=== PATIENT | female | born 1960 | race Caucasian/White ===

== ENCOUNTER → 2017-04-26 | Outpatient (CLI) | payer OTHER ==
--- NOTE | 2017-04-26 15:35 | US ---
EXAMINATION TYPE: US transvaginal DATE OF EXAM: 04/26/2017 COMPARISON: Pelvic ultrasound September 26, 2013 CLINICAL HISTORY: R10.2 Abdominal Pain R10 Female Pelvic Pain. Postmenopausal. Ablation x 2006. TECHNIQUE: Transvaginal (TV) Date of LMP: [employer], EXAM MEASUREMENTS: Uterus: 7.3 x5.1 x 4.6 cm Endometrial Stripe: not visualized 1. Uterus: Anteverted Heterogenous. Multiple fibroids seen throughout uterus. Largest fibroid ap pearing lesion seen in mid uterus = 3.9 x 3.0 x 2.8 cm. Left echogenic focus with shadowing - 1.1 cm 2. Endometrium: Not visualized, possibly due to ablation and fibroids 3. Right Ovary: Obscured by overlying bowel gas 4. Left Ovary: Obscured by overlying bowel gas 5. Bilateral Adnexa: wnl 6. Posterior cul-de-sac: no free fluid Visualized uterus is markedly heterogeneous and somewhat prominent in size for postmenopausal female. Vague hypoechoic areas are presumed to reflect fibroids measuring up to 3.9 cm in size. Endometrium is not well visualized. No free fluid is seen in pelvis. Neither ovary is seen. Suspicious adnexal masses are noted. IMPRESSION: Persistent vague heterogeneous prominent uterus felt to reflect underlying fibroid uterus though there is decrease in size of uterus and fibroids noted since the 2013 study.
--- NOTE | 2017-04-30 09:06 | MM ---
Reason for exam: screening (asymptomatic). Last mammogram was performed 3 years and 10 months ago. History: Benign right mammotome panel of the right breast, March 08, 2007. Benign right US cyst aspiration of the right breast, March 08, 2007. Reductions of both breasts, November 2005. Physical Findings: A clinical breast exam by your physician is recommended on an annual basis and results should be correlated with mammographic findings. MG 3D Screening Mammo W/Cad Bilateral CC and MLO view(s) were taken. Prior study comparison: June 23, 2013, bilateral digital screening mammo w/CAD. April 08, 2012, bilateral digital screening mammo w/CAD. The breast tissue is heterogeneously dense. This may lower the sensitivity of mammography. Finding: There are typically benign stable diffuse/scattered calcifications in both breasts. No suspicious abnormality. No significant changes in finding since June 23, 2013 and April 08, 2012. ASSESSMENT: Benign, BI-RAD 2 RECOMMENDATION: Routine screening mammogram of both breasts in 1 year.
== END | disposition home or self-care (01) ==
LOC: RADMAMWWP 14:30
PROVIDERS: ATTEND Family Medicine
DX: Z12.31 Encounter for screening mammogram for malignant neoplasm of breast (principal); D25.9 Leiomyoma of uterus, unspecified; R10.2 Pelvic and perineal pain; R10.32 Left lower quadrant pain
CPT/HCPCS: 77063; 76830; G0202

== ENCOUNTER → 2017-10-31 | Outpatient (CLI) | payer OTHER ==
--- NOTE | 2017-10-31 11:14 | US ---
EXAMINATION TYPE: US abdomen limited DATE OF EXAM: 10/31/2017 COMPARISON: None CLINICAL HISTORY: 57-year-old female R94.5 Abnormal results of liver function studies. Elevated LFT's , pt has no other complaints at this time TECHNIQUE: Multiple sonographic images of the right upper quadrant are obtained. FINDINGS: EXAM MEASUREMENTS: Liver Length: 17.9 cm CBD: 0.5 cm Right Kidney: 11.3 x 4.5 x 4.9 cm Pancreas: Obscured by bowel gas Liver: Upper limits of normal for size, otherwise with homogeneous echotexture and no focal lesion. Gallbladder: Surgically absent Evidence for sonographic Lamas's sign: No CBD: wnl Right Kidney: wnl IMPRESSION: Borderline hepatomegaly (17.9 cm). Suboptimal visualization of the pancreas. Status post cholecystect emily. No biliary ductal dilatation.
== END | disposition home or self-care (01) ==
LOC: RADUSWWP 10:05
PROVIDERS: ATTEND Obstetrics & Gynecology
DX: R16.0 Hepatomegaly, not elsewhere classified (principal); Z90.49 Acquired absence of other specified parts of digestive tract
CPT/HCPCS: 76705

== ENCOUNTER → 2018-08-28 | Outpatient (CLI) | payer MEDICARE ==
--- NOTE | 2018-08-29 06:32 | BD ---
EXAMINATION TYPE: Axial Bone Density DATE OF EXAM: 08/28/2018 COMPARISON: Prior DEXA bone scan report October 10, 2005. CLINICAL HISTORY: Postmenopausal female Height: 64 Weight: 175.5 FRAX RISK QUESTIONS: Alcohol (3 or more units per day): no Family History (Parent hip fracture): no Glucocorticoids (More than 3mos): no (Ex: prednisone, prednisolone, methylprednisolone, dexamethasone, and hydrocortisone). History of Fracture in Adulthood: yes Secondary Osteoporosis: 1. Type 1 Diabetes: no 2. Hyperthyroidism: no 3. Menopause before 45: no 4. Malnutrition: no 5. Chronic liver disease: no Rheumatoid Arthritis: yes Current Tobacco Use: no RISK FACTORS HISTORY OF: Spine Fracture: spine When: unsure when Surgery to Spine/Hip(right/left)/Wrist (right/left): lumbar surgery When: 2 years ago Family History of Osteoporosis: no Active: yes Diet low in dairy products/other sources of calcium: yes Postmenopausal woman: age 48 Take estrogen and/or progesterone medications: yes How lon months MEDICATIONS:lipitor, estrogen, progesterone , vitamins Thyroid Medications: synthroid How Lon years Additional History: EXAM MEASUREMENTS: Bone mineral densitometry was performed using the [employer]. Bone mineral density about the R hip (g/cm2): 1.039 Bone mineral density about the L hip (g/cm2): 1.088 T Score values are as follows: -----R Neck: 0.0 -----L Neck: 0.4 -----R Total: 0.6 -----L Total: 1.7 Bone mineral density has: decreased -3.4 % since study of: . Bone mineral density about the L Wrist (g/cm2): 0.448 T Score values are as follows: -----Dist. R+U: -0.3 -----Prox. R+U: 0.1 -----Radius total: -0.5 Bone mineral density : baseline IMPRESSION: Normal (Values between +1 and -1 indicate normal bone mass). Consider repeating this study in 5 year s or sooner if there is some new clinical indication. NOTE: T-SCORE=SD OF THE YOUNG ADULT MEAN.
--- NOTE | 2018-08-30 08:26 | MM ---
Reason for exam: screening (asymptomatic). Last mammogram was performed 1 year and 4 months ago. History: Patient is postmenopausal. Benign right mammotome panel of the right breast, March 08, 2007. Benign right US cyst aspiration of the right breast, March 08, 2007. Reductions of both breasts, November 2005. Taking estrogen for 9 months beginning at age 58. Taking progesterone for 9 months beginning at age 58. Physical Findings: A clinical breast exam by your physician is recommended on an annual basis and results should be correlated with mammographic findings. MG Screening Mammo w CAD Bilateral CC and MLO view(s) were taken. Prior study comparison: April 26, 2017, bilateral MG 3d screening mammo w/cad. The breast tissue is heterogeneously dense. This may lower the sensitivity of mammography. Previous mammotome biopsy in the right breast. Bilateral regional punctate calcifications are unchanged. No significant changes when compared with prior studies. ASSESSMENT: Benign, BI-RAD 2 RECOMMENDATION: Routine screening mammogram of both breasts in 1 year.
== END | disposition home or self-care (01) ==
LOC: RADMAMWWP 15:09
PROVIDERS: ATTEND Family Medicine
DX: Z12.31 Encounter for screening mammogram for malignant neoplasm of breast (principal); Z13.820 Encounter for screening for osteoporosis; N95.9 Unspecified menopausal and perimenopausal disorder
CPT/HCPCS: 77067; 77080

== ENCOUNTER 2018-10-11 10:47 | Day surgery (SDC) | payer MEDICARE, OTHER ==
[2018-10-07 12:10] VITALS: BMI 29.2
[~2018-10-11 10:47] MED LIST: LACTATED RINGERS 1,000 ML IV SCH
[2018-10-11 11:01] VITALS: TEMP 98
[2018-10-11] MEDS ORDERED: LIDOCAINE 1% 20 ML VIAL (10MG/ML) FOR IV START INTRADERMA ONE (11:04)
[2018-10-11] MEDS ORDERED: PROPOFOL 10 MG/ML 20 ML VIAL IV ONE (11:52)
[2018-10-11] MEDS ORDERED: LIDOCAINE 1% INJ 10MG/ML (20 ML MDV) ONE (11:52)
--- NOTE | 2018-10-11 11:57 | P.GSHP ---
History of Present Illness H&P Date: 10/11/18 Chief Complaint: Colon cancer screening Patient here today for elective colonoscopy. Patient's last colonoscopy approximately 10 years ago. Patient has a history of intermittent diarrhea and constipation. She also has complaints of hemorrhoidal irritation. Past Medical History Past Medical History: Fibromyalgia, GERD/Reflux, Hyperlipidemia, Osteoarthritis (OA), Thyroid Disorder Additional Past Medical History / Comment(s): SL Varicose veins, "low/normal heart rate", beck's. PROLAPSED MITRAL VALVE. OCC GERD. History of Any Multi-Drug Resistant Organisms: None Reported Past Surgical History: Back Surgery, Breast Surgery, Cholecystectomy, Joint Replacement, Orthopedic Surgery, Uterine Ablation Additional Past Surgical History / Comment(s): jovi breast reduction, rt knee- arthroscopy x 2, ACL x1, REMOVAL OF HARDWARE W/ TOTAL RIGHT KNEE. BACK X2. COLONOSCOPY. Past Anesthesia/Blood Transfusion Reactions: Motion Sickness Additional Past Anesthesia/Blood Transfusion Reaction / Comment(s): "AWAKENS A BIT SLOWLY," SL AWAKE FOR COLONOSCOPY. Smoking Status: Former smoker - Past Family History Father Family Medical History: Cancer Mother Family Medical History: Cancer Medications and Allergies Home Medications Medication Instructions Recorded Confirmed Type Atorvastatin [Lipitor] 40 mg PO DAILY@1200 12/11/14 10/11/18 History Levothyroxine Sodium [Synthroid] 100 mcg PO DAILY 12/11/14 10/11/18 History Aspirin [Adult Low Dose Aspirin EC] 81 mg PO DAILY 10/07/18 10/11/18 History Cholecalciferol [Vitamin D3] 5,000 unit PO DAILY 10/07/18 10/11/18 History Estradiol [Miriam 0.075 MG] 1 patch TRANSDERM Q84H 10/07/18 10/11/18 History Multivitamin with Iron 1 each PO DAILY 10/07/18 10/11/18 History [Multivitamins with Iron] Progesterone, Micronized 200 mg PO DAILY 10/07/18 10/11/18 History [Progesterone] Allergies Allergy/AdvReac Type Severity Reaction Status Date / Time codeine Allergy Itching Verified 10/07/18 11:48 Surgical - Exam Vital Signs Temp Pulse Resp BP Pulse Ox 98.0 F 71 16 131/68 96 10/11/18 10:58 10/11/18 10:58 10/11/18 10:58 10/11/18 10:58 10/11/18 10:58 Physical exam: General: Well-developed, well-nourished HEENT: Normocephalic, sclerae nonicteric Abdomen: Nontender, nondistended Extremities: No edema Neuro: Alert and oriented Assessment and Plan (1) Colon cancer screening Narrative/Plan: Will proceed with colonoscopy Current Visit: Yes Status: Acute Code(s): Z12.11 - ENCOUNTER FOR SCREENING FOR MALIGNANT NEOPLASM OF COLON SNOMED Code(s): 923087048
--- NOTE | 2018-10-11 12:05 | P.PCN ---
Date of Procedure: 10/11/18 Procedure(s) Performed: PREOPERATIVE DIAGNOSIS: Colon cancer screening POSTOPERATIVE DIAGNOSIS: Normal exam PROCEDURE: Colonoscopy ANESTHESIA: MAC SURGEON: Jordan Marks M.D. SPECIMENS: None ENDOSCOPIC PROCEDURE: The patient was placed on the endoscopy table in the left decubitus position. The Olympus colonoscope was inserted into the anus and passed under direct visualization to the base of the cecum. The appendiceal orifice was visualized. From that point the scope was slowly withdrawn inspecti ng all surfaces carefully. There were no neoplastic inflammatory or polypoid lesions throughout the cecum, ascending, transverse, descending, sigmoid and rectum. There was visible diverticulosis noted. Digital rectal examination was normal. The patient was taken to the recovery room in stable condition per anesthesia guidelines. RECOMMENDATIONS: Increase fiber. Follow-up colonoscopy in 10 years.
[2018-10-11 12:37] VITALS: RESP 18
[2018-10-11 12:39] VITALS: BP 104/62; PULSE 72
== END 2018-10-11 12:50 | disposition home or self-care (01) ==
LOC: ORWHC2ENDO 10:47
PROVIDERS: ATTEND Surgery
DX: Z12.11 Encounter for screening for malignant neoplasm of colon (principal); K57.30 Diverticulosis of large intestine without perforation or abscess without bleeding; M19.90 Unspecified osteoarthritis, unspecified site; M79.7 Fibromyalgia; K21.9 Gastro-esophageal reflux disease without esophagitis; E78.5 Hyperlipidemia, unspecified; E06.3 Autoimmune thyroiditis; Z79.82 Long term (current) use of aspirin; Z87.891 Personal history of nicotine dependence; Z79.890 Hormone replacement therapy; Z79.899 Other long term (current) drug therapy; Z88.5 Allergy status to narcotic agent
CPT/HCPCS: 45378

== ENCOUNTER → 2019-01-24 | Outpatient (CLI) | payer MEDICARE ==
[2019-01-24 13:18] LABS: Basophils % (A) 1 %; Eosinophils # (A) 0.1 k/uL (0-0.7); Eosinophils % (A) 2 %; HCT 40.2 % (34.0-46.0); HGB 13.4 gm/dL (11.4-16.0); Lymphocytes # (A) 2.1 k/uL (1.0-4.8); Lymphocytes % (A) 37 %; MCH 29.2 pg (25.0-35.0); MCHC 33.3 g/dL (31.0-37.0); MCV 87.9 fL (80.0-100.0); Monocytes # (A) 0.3 k/uL (0-1.0); Monocytes % (A) 5 %; Neutrophils % (A) 53 %; Platelet Count 258 k/uL (150-450); RBC 4.57 m/uL (3.80-5.40); RDW 13.1 % (11.5-15.5); WBC 5.7 k/uL (3.8-10.6)
[2019-01-24 13:42] LABS: Appearance,Urine Cloudy (Clear); Bacteria,Urine Rare /hpf; Bilirubin,Urine Negative (Negative); Blood,Urine Negative (Negative); Color,Urine Yellow; Glucose,Urine (UA) Negative (Negative); Ketones,Urine Negative (Negative); Leukocyte Esterase,Urine Negative (Negative); Mucus,Urine Moderate /hpf; Nitrite,Urine Negative (Negative); PH, Urine 5.5 (5.0-8.0); Protein,Urine Trace (Negative); Specific Gravity,Urine 1.027 (1.001-1.035); Squamous Epithelial Cell,Urine 14 /hpf (0-4); Urobilinogen,Urine <2.0 mg/dL (<2.0); WBC,Urine 1 /hpf (0-5)
== END | disposition home or self-care (01) ==
LOC: LABWHC1 12:19
PROVIDERS: ATTEND Obstetrics & Gynecology
DX: Z01.812 Encounter for preprocedural laboratory examination (principal)
CPT/HCPCS: 36415; 81001; 85025; 86850; 86900; 86901; 87086

== ENCOUNTER → 2019-01-29 | Outpatient (CLI) | payer MEDICARE ==
[2019-01-29 11:12] LABS: ALT 19 U/L (9-52); AST 25 U/L (14-36); Cholesterol 189 mg/dL (<200); HDL Cholesterol 46 mg/dL (40-60); LDL Cholesterol,Calculated 116 mg/dL (0-99); Triglycerides 134 mg/dL (<150)
== END | disposition home or self-care (01) ==
LOC: LAB 01-28 09:52
PROVIDERS: ATTEND Internal Medicine Cardiovascular Disease
DX: E78.2 Mixed hyperlipidemia (principal)
CPT/HCPCS: 80061; 84450; 84460

== ENCOUNTER → 2020-02-18 | Outpatient (CLI) | payer MEDICARE ==
--- NOTE | 2020-02-18 11:42 | US ---
EXAMINATION TYPE: US abdomen complete DATE OF EXAM: 02/18/2020 COMPARISON: US 10/31/2018 CLINICAL HISTORY: R10.13 epigastric pain; R10.11 RUQ abd pain. Difficult and limited exam due to pawan ent pain EXAM MEASUREMENTS: Liver Length: 13.4 cm Gallbladder Wall: Surgically absent CBD: 0.7 cm Spleen: 8.7 cm Right Kidney: 11.9 x 3.9 x 5.0 cm Left Kidney: 10.6 x 5.3 x 5.0 cm Pancreas: Obscured by bowel gas, visualized portions appear wnl Liver: wnl Gallbladder: Surgically absent Evidence for sonographic Lamas's sign: Yes CBD: wnl post cholecystectomy Spleen: wnl Right Kidney: No hydronephrosis or masses seen Left Kidney: No hydronephrosis or masses seen Upper IVC: wnl Abd Aorta: wnl as visualized The liver is homogenous. The intrahepatic portion of the IVC and proximal abdominal aorta are within normal limits. Common bile duct is unremarkable. The visualized portions of the pancreas are homo genous. The spleen is unremarkable. Kidneys are symmetric and free of hydronephrosis. No renal les ions are seen. IMPRESSION: No distinct abnormality is appreciated.
== END | disposition home or self-care (01) ==
LOC: RADUSWWP 10:58
PROVIDERS: ATTEND Family Medicine
DX: R10.13 Epigastric pain (principal); R10.11 Right upper quadrant pain
CPT/HCPCS: 76700

== ENCOUNTER → 2020-04-30 | Outpatient (CLI) | payer MEDICARE | END | disposition home or self-care (01) | LOC: LABWHC1 09:31 | PROVIDERS: ATTEND Nurse Practitioner Family | DX: Z20.828 Contact with and (suspected) exposure to other viral communicable diseases (principal) | CPT/HCPCS: U0003; C9803 ==

== ENCOUNTER 2020-07-04 13:25 | Emergency (ER) | payer MEDICARE ==
[2020-07-04 13:33] VITALS: TEMP 99
[2020-07-04] MEDS ORDERED: HYDROmorphone 1 MG/ML 1 ML SYRINGE IM STA (14:05)
--- NOTE | 2020-07-04 14:40 | ED ---
Back Pain HPI - General Source: patient, RN notes reviewed Limitations: no limitations <Osman Villagran - Last Filed: 07/04/20 15:41> <Patti Downs - Last Filed: 07/06/20 22:50> - General Chief Complaint: Back Pain/Injury Stated Complaint: back pain Time Seen by Provider: 07/04/20 13:39 - History of Present Illness Initial Comments: 60-year-old female presents emergency Department chief complaint low back pain. Patient states she has chronic low back issues states that she's had 2 laminectomies. Patient states that she was vacuuming a few days ago and states that she felt a pop in her back. She has pain and rates on her left leg to her knee on the frontal aspect of her legs she denies any lower shunted paresthesias or saddle anesthesias. Denies any bowel, bladder incontinence or retention. She has no cords abdominal pain no chest pain or shortness breath no associated weakness states his chest painful. Patient is ambulatory. (Osman Villagran) - Related Data Home Medications Medication Instructions Recorded Confirmed Atorvastatin [Lipitor] 40 mg PO DAILY 12/11/14 07/04/20 Levothyroxine Sodium [Synthroid] 100 mcg PO DAILY 12/11/14 07/04/20 Cholecalciferol [Vitamin D3] 2,000 unit PO DAILY 10/07/18 07/04/20 Ibuprofen [Motrin Ib] 800 mg PO TID PRN 07/04/20 07/04/20 Multivitamins, Thera [Multivitamin 1 tab PO DAILY 07/04/20 07/04/20 (formulary)] diazePAM [Valium] 5 mg PO DAILY PRN 07/04/20 07/04/20 Previous Rx's Medication Instructions Recorded HYDROcodone/APAP 7.5-325MG [Issue 1 tab PO Q6HR PRN 3 Days #12 tab 07/04/20 7.5-325] Ketorolac [Toradol] 10 mg PO Q8HR #15 tab 07/04/20 predniSONE 50 mg PO DAILY #5 tab 07/04/20 Allergies Allergy/AdvReac Type Severity Reaction Status Date / Time codeine Allergy Itching Verified 07/04/20 14:30 Review of Systems ROS Other: All systems not noted in ROS Statement are negative. <Osman Villagran - Last Filed: 07/04/20 15:41> ROS Other: All systems not noted in ROS Statement are negative. <Patti Downs - Last Filed: 07/06/20 22:50> ROS Statement: Those systems with pertinent positive or pertinent negative responses have been documented in the HPI. Past Medical History Past Medical History: Fibromyalgia, Hyperlipidemia, Osteoarthritis (OA), Thyroid Disorder Additional Past Medical History / Comment(s): varicose veins, "low heart rate", beck's History of Any Multi-Drug Resistant Organisms: None Reported Past Surgical History: Back Surgery, Breast Surgery, Cholecystectomy, Joint Replacement, Orthopedic Surgery, Uterine Ablation Additional Past Surgical History / Comment(s): jovi breast reduction, rt knee- arthroscopy x 2, ACL x1, REMOVAL OF HARDWARE WITH TOTAL RIGHT KNEE Past Anesthesia/Blood Transfusion Reactions: Motion Sickness Additional Past Anesthesia/Blood Transfusion Reaction / Comment(s): "AWAKENS A BIT SLOWLY," SL AWAKE FOR COLONOSCOPY. Past Psychological History: Depression Smoking Status: Never smoker Past Alcohol Use History: Occasional Past Drug Use History: None Reported - Past Family History Father Family Medical History: Cancer Mother Family Medical History: Cancer <SamiacaylaOsman Liban - Last Filed: 07/04/20 15:41> General Exam Limitations: no limitations General appearance: alert, in no apparent distress Head exam: Present: atraumatic, normocephalic, normal inspection Eye exam: Present: normal appearance, PERRL, EOMI. Absent: scleral icterus, conjunctival injection, periorbital swelling Respiratory exam: Present: normal lung sounds bilaterally. Absent: respiratory distress, wheezes, rales, rhonchi, stridor Cardiovascular Exam: Present: regular rate, normal rhythm, normal heart sounds. Absent: systolic murmur, diastolic murmur, rubs, gallop, clicks GI/Abdominal exam: Present: soft, normal bowel sounds. Absent: distended, tenderness, guarding, rebound, rigid Extremities exam: Present: other (Lower extremity strength equal bilaterally, neurovascular intact equal color and equal warmth) Back exam: Present: tenderness, muscle spasm, paraspinal tenderness, vertebral tenderness. Absent: full ROM, CVA tenderness (R), CVA tenderness (L) Neurological exam: Present: alert, oriented X3, CN II-XII intact, reflexes normal. Absent: motor sensory deficit Skin exam: Present: warm, dry, intact, normal color. Absent: rash <Osman Villagran - Last Filed: 07/04/20 15:41> Course Vital Signs 07/04/20 07/04/20 07/04/20 13:28 14:33 15:33 Temperature 99.0 F Pulse Rate 74 Respiratory 20 18 18 Rate Blood Pressure 146/73 O2 Sat by Pulse 97 Oximetry 07/04/20 16:02 Temperature 99.0 F Pulse Rate 67 Respiratory 18 Rate Blood Pressure 112/68 O2 Sat by Pulse 97 Oximetry Medical Decision Making <Osman Villagran - Last Filed: 07/04/20 15:41> <Patti Downs - Last Filed: 07/06/20 22:50> - Medical Decision Making 60-year-old presented for low back pain. X-ray shows grade 1 retrolisthesis and degenerative changes. Patient has chronic back issues she has no red flag symptoms she is neurologically intact is ambulating. Patient's pain is improved after IM analgesic. Patient we discharged stable condition with follow-up with Dr. Baca (Osman Villagran) I was available for consultation in the emergency department. The history and physical exam were done by the midlevel provider. I was consulted for this patients care. I reviewed the case with the midlevel provider and based on their presentation of the patient, I agree with the assessment, medical decision making and plan of care as documented. Chart was dictated using [employer] dictation software. Attempts were made to correct any dictation errors however some typographical errors may persist. Patient was seen during a national state of emergency due to the Covid-19 pandemic. (Patti Downs) Disposition Is patient prescribed a controlled substance at d/c from ED?: Yes When asked, does pt state using other controlled substances?: Yes If prescribed controlled substance>3 days was MAPS reviewed?: Prescribed <3 Days If opioid is for acute pain is fill amount 7 days or less?: Yes If Rx opioid, was Start Talking consent form obtained?: Yes Time of Disposition: 15:45 <Osman Villagran - Last Filed: 07/04/20 15:41> <Patti Downs - Last Filed: 07/06/20 22:50> Clinical Impression: Acute lumbar radiculopathy Disposition: HOME SELF-CARE Condition: Stable Instructions (If sedation given, give patient instructions): Acute Low Back Pain (ED) Additional Instructions: Please return to the Emergency Department if symptoms worsen or any other c oncerns. Prescriptions: HYDROcodone/APAP 7.5-325MG [Issue 7.5-325] 1 tab PO Q6HR PRN 3 Days #12 tab PRN Reason: pain predniSONE 50 mg PO DAILY #5 tab Ketorolac [Toradol] 10 mg PO Q8HR #15 tab Referrals: Rufus Soto III, MD [Primary Care Provider] - 1-2 days Glenroy Baca DO [Doctor of Osteopathic Medicine] - 1-2 days
--- NOTE | 2020-07-04 15:27 | XR ---
Result: History: Low back pain status post strain 3 weeks ago. Comparison: None available. Technique: 5 views of the lumbar spine. Findings: The bone mineralization is normal. Images of the lumbar spine demonstrate 5 lumbar-type vertebrae. There is no acute fracture or sublux ation. The vertebral body heights are preserved throughout the imaged lumbar spine. There is minimal grade 1 retrolisthesis of L3 on L4 and L4 on L5. There is moderate to severe disc and facet degener ative changes at L4-S1. Cholecystectomy clips are seen. The sacroiliac joints are patent. Impression: Moderate to severe lumbar spondylosis with minimal grade 1 retrolisthesis and without acute fracture.
[2020-07-04] MEDS ORDERED: ONDANSETRON 4 MG ODT STARTER PACK 2 TAB BTL PO STA (15:46)
[2020-07-04 15:57] VITALS: RESP 18
[2020-07-04 16:03] VITALS: BP 112/68; PULSE 67
== END 2020-07-04 16:05 | disposition home or self-care (01) ==
LOC: EC 13:25
DX: M43.16 Spondylolisthesis, lumbar region (principal); M54.16 Radiculopathy, lumbar region; F32.9 Major depressive disorder, single episode, unspecified; M79.7 Fibromyalgia; E78.5 Hyperlipidemia, unspecified; M19.90 Unspecified osteoarthritis, unspecified site; E06.3 Autoimmune thyroiditis; Z79.890 Hormone replacement therapy; Z88.5 Allergy status to narcotic agent; Z79.899 Other long term (current) drug therapy; Z98.890 Other specified postprocedural states
CPT/HCPCS: 72110; 96372; 99283; J1170; S0119

== ENCOUNTER → 2020-09-22 | Outpatient (CLI) | payer MEDICARE ==
--- NOTE | 2020-09-22 14:41 | CT ---
EXAMINATION TYPE: CT lumbar spine wo con DATE OF EXAM: 09/22/2020 COMPARISON: None HISTORY: low back pain, left leg weakness and numbness CT DLP: 580.1 mGycm CONTRAST: None TECHNIQUE: CT of the lumbar spine is performed on a spiral scan at 3 mm thick sections. Reconstructed images are performed in the coronal and sagittal planes. FINDINGS: T11-12: No focal disc herniation or significant disc bulge. No spinal canal stenosis or neural forami nal stenosis. T12-L1: No focal disc herniation or significant disc bulge is evident. No spinal canal stenosis or neural foraminal stenosis is present. L1-L2: No focal disc herniation or significant disc bulge is evident. No spinal canal stenosis or n eural foraminal stenosis is present L2-L3: No focal disc herniation or significant disc bulge is evident. No spinal canal stenosis or n eural foraminal stenosis is present L3-L4: Mild disc bulge with anterior thecal sac flattening. No AP spinal canal stenosis present. Ther e may be some disc extension into the left lateral direction. Correlate with left L4 radicular sympto ms. L4-L5: Disc bulge is present with anterior thecal sac flattening. No spinal canal stenosis or neural foraminal stenosis is present L5-S1: There is a large central and left paracentral spur likely causing narrowing of the left forame n. Correlate for left S1 radicular symptoms. Vertebral alignment appears normal. IMPRESSION: 1. Disc bulge at L3-4 L4-5 without spinal canal stenosis. 2. Large endplate spur L5 with moderate anterior thecal sac compression and narrowing of the left for amen. Correlate with left S1 radicular symptoms.
== END | disposition home or self-care (01) ==
LOC: RADCTMAIN 13:53
PROVIDERS: ATTEND Family Medicine
DX: M51.26 Other intervertebral disc displacement, lumbar region (principal)
CPT/HCPCS: 72131

== ENCOUNTER → 2020-12-17 | Outpatient (CLI) | payer MEDICARE ==
--- NOTE | 2020-12-17 18:42 | CT ---
EXAMINATION TYPE: CT abdomen pelvis w con DATE OF EXAM: 12/17/2020 HISTORY: 60-year-old female with left lower quadrant abdominal pain CT DLP: 846.10mGycm Automated Exposure Control for Dose Reduction was Utilized. CONTRAST: CT scan of the abdomen and pelvis is performed with IV Contrast, patient injected with 100 mL of Isov ue 300. COMPARISON: No prior CT abdomen and pelvis available for comparison. Comparison made CT of the lumbar spine CT of the pelvis dated 09/22/2020 and 04/10/2013 respectively FINDINGS: LUNG BASES: Linear opacity in the right anterior lung likely on the basis of atelectatic changes. INCLUDED CARDIAC STRUCTURES: No cardiomegaly LIVER: No significant abnormality is appreciated. GALLBLADDER : Cholecystectomy BILIARY TREE: No abnormal biliary tree dilation. PANCREAS: No significant abnormality is seen. SPLEEN: No significant abnormality is seen. ADRENALS: No significant abnormality is seen. KIDNEYS AND URETERS: No significant abnormality is seen. URINARY BLADDER: No significant abnormality is appreciated. LOWER ESOPHAGUS: No significant abnormality is seen. STOMACH: No significant abnormality is seen. SMALL BOWEL: No significant abnormality is seen. LARGE BOWEL: There is a 3.2 cm fat density ovoid structure adjacent to the distal descending colon wi th a thin high density rim and surrounding fat stranding. There is no diverticulosis. APPENDIX: Not definitely visualized. HERNIAS: Hernias seen. UTERUS/ADNEXA: Nonvisualized uterus. Unremarkable adnexal region. PERITONEUM/MESENTRY: No pneumoperitoneum or ascites. LYMPH NODES: No enlarged retroperitoneal or pelvic lymph nodes are appreciated. MAJOR VASCULAR STRUCTURES: Nonaneurysmal aorta. Unremarkable inferior vena cava. OSSEOUS STRUCTURES: No acute osseous abnormality. No aggressive osseous lesion. Moderate severe degen erative changes are seen in the spine most severe at L5-S1. Disc herniation is likely present in the lumbar spine. IMPRESSION: 1. Left descending colon epiploic appendagitis versus omental infarction, inflammatory malignancy can not be entirely excluded. Repeat abdomen pelvic CT in 3-6 months and/or correlation with direct visua lization recommended. 2. Opacities in the anterior right lung which are partially seen likely on the basis of atelectasis, infection, inflammation or even malignancy cannot be entirely excluded.
== END | disposition home or self-care (01) ==
LOC: RADCTMAIN 15:11
PROVIDERS: ATTEND Family Medicine
DX: R10.32 Left lower quadrant pain (principal)
CPT/HCPCS: 74177; Q9967

== ENCOUNTER → 2021-03-18 | Outpatient (CLI) | payer MEDICARE ==
--- NOTE | 2021-03-18 12:18 | CT ---
EXAMINATION TYPE: CT ChestAbdPelvis w con DATE OF EXAM: 03/18/2021 COMPARISON: CT abdomen and pelvis December 17, 2020 HISTORY: abnormal findings prior study, CT DLP: 708.8 mGycm. Automated Exposure Control for Dose Reduction was Utilized. CONTRAST: CT scan of the thorax, abdomen and pelvis is performed with IV Contrast, patient injected with 100 mL of Isovue 300. FINDINGS: LUNGS: The lungs are grossly clear, there is no concerning new greater than 5 mm parenchymal mass or nodule identified. No new consolidation There is no pleural effusion or pneumothorax seen. The trac heobronchial tree is patent. MEDIASTINUM: There are no greater than 1 cm hilar or mediastinal lymph nodes. No cardiomegaly or pe ricardial effusion is seen. Thyroid gland is atrophic or absent. OTHER: Heterogeneously dense fibroglandular tissue in both breasts is noted. LIVER/GB: Cholecystectomy clips are redemonstrated. PANCREAS: No significant abnormality is seen. SPLEEN: No significant abnormality is seen. ADRENALS: No significant abnormality is seen. KIDNEYS: Nonobstructing 7 mm calculus lower pole right kidney coronal image 50 is stable from prior. Symmetric cortical medullary uptake and excretion without hydronephrosis seen bilaterally. BOWEL: Oral contrast reaches level of the hepatic flexure on current study. No suspicious small or la rge bowel dilatation. Prior visualized tubular-shaped fat structure with surrounding inflammatory robert nge left lower quadrant now not seen. GENITAL ORGANS: Uterus is surgically absent. Scattered bilateral pelvic phleboliths redemonstrated. LYMPH NODES: No greater than 1cm abdominal or pelvic lymph nodes are appreciated. OSSEOUS STRUCTURES: Spine is straightened on sagittal images. Moderate disc space narrowing at L1-L2 and L5-S1 levels. OTHER: No significant additional abnormality is seen. IMPRESSION: Interval resolution of tubular-shaped structure left lower quadrant with surrounding fat stranding. No new suspicious mass or adenopathy noted.
== END | disposition home or self-care (01) ==
LOC: RADCTMAIN 09:21
PROVIDERS: ATTEND Family Medicine
DX: R93.5 Abnormal findings on diagnostic imaging of other abdominal regions, including retroperitoneum (principal)
CPT/HCPCS: 71260; 74177; Q9967

== ENCOUNTER → 2022-05-15 | Outpatient (CLI) | payer MEDICARE ==
--- NOTE | 2022-05-16 08:08 | MM ---
Reason for Exam: Screening (asymptomatic). Last mammogram was performed 3 year(s) and 8 month(s) ago. Patient History: Menarche at age 14. First Full-Term at age 21. Postmenopausal. Estrogen for 9 months starting at age 58. Progesterone for 9 months starting at age 58. 11/2005, Bilateral Reduction. 03/08/2007, Benign Cyst Aspiration on the right side. 03/08/2007, Benign Core Biopsy on the right side. Risk Values: Kelsea 5 year model risk: 1.5%. NCI Lifetime model risk: 7.7%. Prior Study Comparison: 06/23/2013 Bilateral Screening Mammogram, [facility]. 04/26/2017 Bilateral Screening Mammogram, [facility]. 08/28/2018 Bilateral Screening Mammogram, [facility]. Tissue Density: The breast tissue is heterogeneously dense. This may lower the sensitivity of mammography. Findings: Analyzed By CAD. Mammotome biopsy clip in the right breast is redemonstrated. Some scattered and loosely grouped benign-appearing small round calcifications throughout the bilateral breasts are again seen. There is no suspicious new group of microcalcifications or new suspicious mass in either breast. Overall Assessment: Benign, BI-RAD 2 Management: Screening Mammogram of both breasts in 1 year. Some consider bilateral breast ultrasound surveillance in patients with background dense tissue. A clinical breast exam by your physician is recommended on an annual basis and results should be correlated with mammographic findings. Electronically signed and approved by: Ed Shaw M.D.
== END | disposition home or self-care (01) ==
LOC: RADMAMWWP 11:14
PROVIDERS: ATTEND Family Medicine
DX: Z12.31 Encounter for screening mammogram for malignant neoplasm of breast (principal); Z78.0 Asymptomatic menopausal state
CPT/HCPCS: 77063; 77067

== ENCOUNTER → 2023-04-10 | Outpatient (CLI) | payer MEDICARE ==
[2023-04-10 19:27] LABS: ALT 27 U/L (8-44); AST 27 U/L (13-35); Chol/HDL Ratio 3.51 Ratio; LDL Cholesterol,Calculated 123.5 mg/dL (0.0-131.0)
== END | disposition home or self-care (01) ==
LOC: LABWHC1 12:39
PROVIDERS: ATTEND Family Medicine
DX: E78.49 Other hyperlipidemia (principal)
CPT/HCPCS: 36415; 80061; 84450; 84460; 86140; 86141

== ENCOUNTER → 2023-04-19 | Outpatient (CLI) | payer MEDICARE ==
[2023-04-20 03:03] LABS: T4, Free (Free Thyroxine) 1.79 ng/dL (0.80-1.80)
[2023-04-21 07:07] LABS: Lipoprotein A 15 mg/dL (0-30)
== END | disposition home or self-care (01) ==
LOC: LABWHC1 15:19
PROVIDERS: ATTEND Family Medicine
DX: E03.9 Hypothyroidism, unspecified (principal); E78.49 Other hyperlipidemia
CPT/HCPCS: 36415; 82172; 83090; 83695; 84439; 84443

== ENCOUNTER → 2023-05-28 | Outpatient (CLI) | payer MEDICARE ==
--- NOTE | 2023-05-28 11:27 | US ---
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 IMPRESSION: Small heterogeneous thyroid gland suggests chronic hypothyroidism. No discrete nodule is seen.
--- NOTE | 2023-05-29 15:44 | MM ---
Reason for Exam: Screening (asymptomatic). Last mammogram was performed 1 year(s) and 1 month(s) ago. Patient History: Menarche at age 14. First Full-Term at age 21. Postmenopausal. Patient has history of breast feeding. Estrogen for 9 months starting at age 58. Progesterone for 9 months starting at age 58. 11/2005, Bilateral Reduction. 03/08/2007, Benign Cyst Aspiration on the right side. 03/08/2007, Benign Core Biopsy on the right side. Risk Values: Kelsea 5 year model risk: 1.6%. NCI Lifetime model risk: 7.3%. Prior Study Comparison: 06/23/2013 Bilateral Screening Mammogram, [facility]. 04/26/2017 Bilateral Screening Mammogram, [facility]. 08/28/2018 Bilateral Screening Mammogram, [facility]. 05/15/2022 Bilateral MG 3D screening mammo w/cad, [facility]. Tissue Density: The breast tissue is heterogeneously dense. This may lower the sensitivity of mammography. Findings: Analyzed By CAD. Pattern appears stable. There are scattered multiple bilateral benign-appearing calcifications. No suspicious groups of microcalcifications, spiculated or lobular masses, architectural distortion or other secondary signs of malignancy are mammographically apparent. Overall Assessment: Benign, BI-RAD 2 Management: Screening Mammogram of both breasts in 1 year. A negative mammogram report should not preclude additional follow up of suspicious palpable abnormalities. Patient should continue monthly self breast exam. A clinical breast exam by your physician is recommended on an annual basis and results should be correlated with mammographic findings. Electronically signed and approved by: Gm Pollock D.O. Radiologis
== END | disposition home or self-care (01) ==
LOC: RADMAMWWP 07:04
PROVIDERS: ATTEND Family Medicine
DX: Z12.31 Encounter for screening mammogram for malignant neoplasm of breast (principal); E05.90 Thyrotoxicosis, unspecified without thyrotoxic crisis or storm; E07.89 Other specified disorders of thyroid; E06.3 Autoimmune thyroiditis; Z78.0 Asymptomatic menopausal state
CPT/HCPCS: 76536; 77063; 77067

== ENCOUNTER → 2023-07-02 | Outpatient (CLI) | payer MEDICARE ==
[2023-07-02 16:35] LABS: Albumin 4.8 g/dL (3.8-4.9); Rheumatoid Factor, Qnt <15 IU/mL (0-15); Uric Acid 4.8 mg/dL (2.9-7.7)
[2023-07-02 19:08] LABS: Cyclic Citrull Pep IgG Unit <1.5 U/mL (<=3.9); Cyclic Citrullinated Pep IgG Negative
== END | disposition home or self-care (01) ==
LOC: LABWHC1 09:33
PROVIDERS: ATTEND Family Medicine
DX: M79.10 Myalgia, unspecified site (principal); M79.641 Pain in right hand; M79.642 Pain in left hand
CPT/HCPCS: 36415; 82040; 84439; 84443; 84480; 84550; 85652; 86200; 86431

== ENCOUNTER → 2023-10-05 | Outpatient (CLI) | payer MEDICARE ==
[2023-10-05 16:48] LABS: T4, Free (Free Thyroxine) 1.28 ng/dL (0.80-1.80)
== END | disposition home or self-care (01) ==
LOC: LABWHC1 09:29
PROVIDERS: ATTEND Family Medicine
DX: E78.5 Hyperlipidemia, unspecified (principal); E03.9 Hypothyroidism, unspecified
CPT/HCPCS: 36415; 80061; 84439; 84443

== ENCOUNTER → 2024-08-20 | Outpatient (CLI) | payer MEDICARE ==
--- NOTE | 2024-08-20 17:29 | MM ---
Reason for Exam: Screening (asymptomatic). Last mammogram was performed 1 year(s) and 3 month(s) ago. Patient History: Menarche at age 14. First Full-Term at age 21. Postmenopausal. Patient has history of breast feeding. Estrogen for 9 months starting at age 58. Progesterone for 9 months starting at age 58. 11/2005, Bilateral Reduction. 03/08/2007, Benign Cyst Aspiration on the right side. 03/08/2007, Benign Core Biopsy on the right side. Risk Values: Kelsea 5 year model risk: 1.7%. NCI Lifetime model risk: 7.1%. Prior Study Comparison: 08/28/2018 Bilateral Screening Mammogram, [facility]. 05/15/2022 Bilateral MG 3D screening mammo w/cad, [facility]. 05/28/2023 Bilateral MG 3D screening mammo w/cad, [facility]. Tissue Density: The breasts are heterogeneously dense, which may obscure small masses. Findings: Analyzed By CAD. Unchanged bilateral areas of asymmetric density. Microclip anterior right breast from prior biopsy. There is no suspicious group of microcalcifications or new suspicious mass in either breast. Overall Assessment: Benign, BI-RAD 2 Management: Screening Mammogram of both breasts in 1 year. Patient should continue monthly self-breast exams. A clinical breast exam by your physician is recommended on an annual basis. This exam should not preclude additional follow-up of suspicious palpable abnormalities. Note on Kelsea scores and lifetime risk: 1. A Kelsea score greater than 3% is considered moderate risk. If this is the case, consider specialist referral to assess eligibility for a risk reducing agent. 2. If overall lifetime risk for the development of breast cancer is 20% or higher, the patient may qualify for future screening with alternating mammogram and breast MRI. [facility], , 08/20/2024 5:26 PM. Electronically signed and approved by: Nicolasa Turner M.D. Radiologist
== END | disposition home or self-care (01) ==
LOC: RADMAMWWP 12:55
PROVIDERS: ATTEND Family Medicine
DX: Z12.31 Encounter for screening mammogram for malignant neoplasm of breast (principal); R92.333 Mammographic heterogeneous density, bilateral breasts; Z78.0 Asymptomatic menopausal state
CPT/HCPCS: 77063; 77067